=== PATIENT | male | born 1965 | race Caucasian/White ===

== ENCOUNTER 2020-01-22 07:06 | Emergency (ER) | payer MEDICAID, OTHER ==
[~2020-01-22] VITALS: Ht 172.7 cm; Wt 68.2 kg
[~2020-01-22 07:06] MED LIST: LURA40TA2 PO
[2020-01-22 07:55] LABS: GLUCOSE,POINT OF CARE 125 MG/DL (70-110)
[2020-01-22 09:06] VITALS: BP 134/81
[2020-01-22] MEDS ORDERED: LORazepam 1 MG TABLET PO ONE (10:30)
[2020-01-22] MEDS ORDERED: HALOPERIDOL 5 MG TABLET PO ONE (10:30)
== END 2020-01-22 11:53 | disposition home or self-care (01) ==
LOC: EMS 07:09
DX: F25.9 Schizoaffective disorder, unspecified (principal)

== ENCOUNTER 2020-08-29 11:27 | Emergency (ER) | payer MEDICAID ==
[~2020-08-29] VITALS: Ht 177.8 cm; Wt 65.9 kg
[2020-08-29 15:15] VITALS: BP 126/70
== END 2020-08-29 15:25 | disposition home or self-care (01) ==
LOC: EMS 11:35
DX: S50.11XA Contusion of right forearm, initial encounter (principal); F17.210 Nicotine dependence, cigarettes, uncomplicated; F12.90 Cannabis use, unspecified, uncomplicated; F19.90 Other psychoactive substance use, unspecified, uncomplicated; Z59.0 Homelessness; Y35.811A Legal intervention involving manhandling, law enforcement official injured, initial encounter; Y93.89 Activity, other specified; Y92.89 Other specified places as the place of occurrence of the external cause; Y99.8 Other external cause status